=== PATIENT | female | born 1960 | race Caucasian/White ===

== ENCOUNTER 2017-03-08 18:34 | Emergency (ER) | payer BC, OTHER ==
[~2017-03-08] VITALS: Ht 165.1 cm; Wt 81.8 kg
[2017-03-08] MEDS ORDERED: SYNTHROID0.075 MG PO (18:44)
[2017-03-08] MEDS ORDERED: ZOCOR5 MG PO (18:44)
[2017-03-08] MEDS ORDERED: VITAMIN D 1001000 IU PO (18:45)
[2017-03-08] MEDS ORDERED: XANAX0.5 M1 PO (18:45)
[2017-03-08] MEDS ORDERED: TRAMADOL 50 MG TAB PO (20:43)
[2017-03-08 20:55] VITALS: BP 150/99
== END 2017-03-08 20:55 | disposition home or self-care (01) ==
LOC: ED 18:34
DX: S82.831A Other fracture of upper and lower end of right fibula, initial encounter for closed fracture (principal); S80.812A Abrasion, left lower leg, initial encounter; X50.1XXA Overexertion from prolonged static or awkward postures, initial encounter
CPT/HCPCS: J1885; L4360